=== PATIENT | female | born 2000 | race Caucasian/White ===

== ENCOUNTER 2024-07-17 17:10 | Emergency (ER) | payer MEDICAID ==
[~2024-07-17] VITALS: Ht 157.5 cm; Wt 61.3 kg
[2024-07-17] MEDS: SILVER SULFADIAZINE 1 % TOPICAL CREAM 50GM TOP ONE (18:54)
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
[2024-07-17] MEDS ORDERED: HYDR-4902 PO (19:52)
[2024-07-17 19:55] VITALS: BP 132/86; PULSE 112; RESP 18; TEMP 98.9; O2SAT 99
== END 2024-07-17 20:02 | disposition home or self-care (01) ==
LOC: ER 17:16
DX: T25.221A Burn of second degree of right foot, initial encounter (principal); T31.0 Burns involving less than 10% of body surface; X12.XXXA Contact with other hot fluids, initial encounter; Y93.G3 Activity, cooking and baking; Y92.89 Other specified places as the place of occurrence of the external cause; Y99.8 Other external cause status
CPT/HCPCS: 16020

== ENCOUNTER 2024-07-28 10:52 | Emergency (ER) | payer MEDICAID ==
[~2024-07-28] VITALS: Ht 157.5 cm; Wt 60.0 kg
[~2024-07-28 10:52] MED LIST: HYDR-4902 PO
[2024-07-28 11:03] VITALS: BP 130/80; PULSE 118; RESP 15; O2SAT 99
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
[2024-07-28] MEDS ORDERED: CEPH250C PO (12:03)
[2024-07-28] MEDS ORDERED: BAC09TP TOP (12:03)
[2024-07-28] MEDS: HYDROcodone-ACET 10/325MG TAB PO ONE (12:36)
== END 2024-07-28 12:37 | disposition home or self-care (01) ==
LOC: ER 10:52
DX: T25.221A Burn of second degree of right foot, initial encounter (principal); X08.8XXA Exposure to other specified smoke, fire and flames, initial encounter; Y93.89 Activity, other specified; Y92.89 Other specified places as the place of occurrence of the external cause; Y99.8 Other external cause status

== ENCOUNTER 2025-02-02 08:26 | Inpatient (IN) | payer MEDICAID ==
[~2025-02-02] VITALS: Ht 157.5 cm; Wt 67.0 kg
[~2025-02-02 08:26] MED LIST changes: +BAC09TP TOP; +CEPH250C PO
--- NOTE | 2025-02-02 09:04 | ED.PDOC ---
GI ASSESSMENT HPI Comments 24 y/o F, with PMHx of stomach ulcers presents to the ED for CC of abdominal pain. Patient states, she has been experiencing epigastric abdominal pain onset, last night (02/01/25). Patient relays, to have been drinking alcohol last night (02/01/25) which may be cause of symptoms however, is unsure. Patient reports, that she is currently unsure if she is ; endorses LMP to have been in Mid December 2024. Patient denies abdominal cramping, vaginal bleeding, nausea, or vomiting. No other symptoms or modifying factors present at this time. Chief Complaint: Abdominal Pain Time Seen by MD: 08:50 Primary Care Provider: NONE Reviewed Notes: Nurses Notes, Medications, Allergies Allergies: Coded Allergies: NO KNOWN ALLERGIES (Unverified , 07/17/24) Home Meds Active Scripts Bacitracin (Bacitracin Oint) 1 Applic Ap, 1 APPLIC TOP DAILY for 5 Days, #1 APPLIC Prov:CURT VELASQUEZ MD 07/28/24 Cephalexin (KEFLEX CAPSULE) 250 Mg Cp, 250 MG PO QID for 5 Days, #20 BOTTLE Prov:CURT VELASQUEZ MD 07/28/24 Hydrocodone-Acetaminophen (Hydrocodone Bitartrate/AC 5-325 mg) 1 Tab Tab, 1 TAB PO TID PRN, #24 TAB Prov:SUN LOPEZ 07/17/24 Information Source: Patient Mode of Arrival: Ambulatory Timing: Hours Duration: Since onset Prehospital treatment: None Quality: None Vomitus: None Stool: Normal Severity: Moderate Recent: None Recent Hx of: Ulcer Disease Pain Location: Epigastric Modifying Factors: Nothing Associated sign and symptoms: Abdominal Pain Past Medical History PAST MEDICAL HISTORY: Denies 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 Family History Family History: Reviewed,noncontributory to illness, Unknown Social History Smoker: Non-Smoker Alcohol: Occasionally Drugs: Denies Drug Use Lives In: Home Constitutional: denies: chills, diaphoresis, fatigue, fever, malaise, sweats, weakness, others EENTM: denies: blurred vision, double vision, ear bleeding, ear discharge, ear drainage, ear pain, ear ringing, eye pain, eye redness, hearing loss, mouth pain, mouth swelling, nasal discharge, nose bleeding, nose congestion, nose pain, photophobia, tearing, throat pain, throat swelling, voice changes, others Respiratory: denies: cough, hemoptysis, orthopnea, SOB at rest, shortness of breath, SOB with excertion, stridor, wheezing, others Cardiovascular: denies: chest pain, dizzy spells, diaphoresis, Dyspnea on exertion, edema, irregular heart beat, left arm pain, lightheadedness, palpitations, PND, syncope, others Gastrointestinal: reports: abdominal pain; denies: abdomen distended, blood streaked bowels, constipated, diarrhea, dysphagia, difficulty swallowing, hematemesis, melena, nausea, poor appetite, poor fluid intake, rectal bleeding, rectal pain, vomiting, others Genitourinary: denies: abnormal vagina bleeding, burning, dyspareunia, dysuria, flank pain, frequency, hematuria, incontinence, pain, , vagina discharge, urgency, others Neurological: denies: dizziness, fainting, headache, left sided numbness, left sided weakness, numbness, paresthesia, pre-existing deficit, right sided numbness, right sided weakness, seizure, speech problems, tingling, tremors, weakness, others Musculoskeletal: denies: back pain, gout, joint pain, joint swelling, muscle pain, muscle stiffness, neck pain, others Integumetry: denies: bruises, change in color, change in hair/nails, dryness, laceration, lesions, lumps, rash, wounds, others Allergic/Immunocompromised: denies: Difficulty Healing, Frequent Infections, Hives, Itching, others Hematologic/Lymphatic: denies: anemia, blood clots, easy bleeding, easy bruising, swollen glands, others Endocrine: denies: excessive hunger, excessive sweating, excessive thirst, excessive urination, flushing, intolerance to cold, intolerance to heat, unexplained weight gain, unexplained weight loss, others Psychiatric: denies: anxiety, bipolar disorder, depression, hopeless, panic disorder, schizophrenia, sleepless, suicidal, others All Other Systems: Reviewed and Negative Physical Exam General Appearance: No Apparent Distress, Other (terarful) HEENT: Normal ENT Inspection, Pharynx Normal, TMs Normal Neck: Full Range of Motion, Non-Tender, Normal, Normal Inspection Respiratory: Chest Non-Tender, Lungs Clear, No Accessory Muscle Use, No Respiratory Distress, Normal Breath Sounds Cardiovascular: No Edema, No JVD, No Murmur, No Gallop, Normal Peripheral Pulses, Regular Rate/Rhythm Breast Exam: Deferred Gastrointestinal: Epigastric, No Organomegaly, No Pulsatile Mass, Normal Bowel Sounds, RUQ, Tenderness Genitalia: Deferred Pelvic: Deferred Rectal: Deferred Extremities: No calf tenderness, Normal capillary refill, Normal inspection, Normal range of motion, Non-tender, No pedal edema Musculoskeletal : Apperance: Normal Neurologic: Alert, environmental health manager II-XII nml as Tested, No Motor Deficits, Normal Affect, Normal Mood, No Sensory Deficits Cerebellar Function: Normal Reflexes: Normal Skin: Dry, Normal Color, Warm Lymphatic: No Adenopathy Was a procedure done? Was a procedure done?: No GI differential Dx Differential Diagnosis: Appendicitis, Complete , Incomplete , Inevitable , Missed , Threatened , Abruptio placentae, Angina/AK, Aortic dissection, Bowel Obstruction, Cholangitis, Cholecystitis, Constipation, Diverticular disease, Dysmenorrhea, Ectopic , Esophageal rupture, Gastritis/PUD, Gastroenteritis, GI hemorrhage, Hernia, Hepatitis, Inflammatory BD, Ischemic Bowel, Pancreatitis, Urinary Obstruction, UTI, Urolithiasis, Dehydration, Diabetes/ DKA, Electrolyte Imbalance, Food Poisoning, , Bacterial, Viral, Stress Ulcer X-Ray, Labs, Meds, VS Vital Signs Date Time Temp Pulse Resp B/P (MAP) Pulse Ox O2 Delivery O2 Flow Rate FiO2 02/02/25 09:07 98.7 112 18 127/89 (102) 100 98.7 02/02/25 09:07 112 18 100 Room Air 02/02/25 08:43 98.7 102 20 138/92 (107) 100 98.7 Lab Test 02/02/25 10:54 02/02/25 08:56 Range/Units Urine Color Light-yellow Yellow Urine Clarity Clear Clear Urine pH 5.5 5.0-9.0 Urine Specific [place] 1.025 1.001-1.035 Urine Protein Trace H Negative Urine Ketones 3+ H Negative Urine Blood Negative Negative /uL Urine Nitrite Negative Negative Urine Bilirubin Negative Negative Urine Urobilinogen Normal Negative mg/dL Urine Leukocyte Esterase Negative Negative /uL Urine RBC 3 0 - 4 /hpf Urine Microscopic WBC 1 0-5 /HPF Urine Squamous Epithelial Cells Few <5 /hpf Urine Bacteria None seen None Seen /hpf Urine Mucus Few None Seen Urine Glucose Normal Normal mg/dL Urine Test Negative Negative White Blood Count 18.7 H 4.4-10.8 10^3/uL Red Blood Count 5.07 4.0-5.20 10^6/uL Hemoglobin 15.0 12.2-16.2 g/dL Hematocrit 45.1 36.0-46.0 % Mean Corpuscular Volume 88.9 80.0-100.0 fL Mean Corpuscular Hemoglobin 29.6 28.0-32.0 pg Mean Corpuscular Hemoglobin Concent 33.2 32.0-36.0 g/dL Red Cell Distribution Width 14.3 11.8-14.3 % Platelet Count 354 140-450 10^3/uL Mean Platelet Volume 8.0 6.9-10.8 fL Neutrophils (%) (Auto) 92.6 H 37.0-80.0 % Lymphocytes (%) (Auto) 5.8 L 10.0-50.0 % Monocytes (%) (Auto) 1.5 0.0-12.0 % Eosinophils (%) (Auto) 0.0 0.0-7.0 % Basophils (%) (Auto) 0.1 0.0-2.0 % Neutrophils # (Auto) 17.3 H 1.6-8.6 10 ^3/uL Lymphocytes # (Auto) 1.1 0.4-5.4 10 ^3/uL Monocytes # (Auto) 0.3 0-1.3 10 ^3/uL Eosinophils # (Auto) 0 0-0.8 10 ^3/uL Basophils # (Auto) 0 0-0.2 10 ^3/uL Nucleated Red Blood Cells 0.0 % Sodium Level 143 136-145 mmol/L Potassium Level 3.3 L 3.5-5.1 mmol/L Chloride Level 107 98-107 mmol/L Carbon Dioxide Level 15 L 20-31 mmol/L Anion Gap 21 H 5-15 Blood Urea Nitrogen 7 L 9-23 mg/dL Creatinine 0.96 0.550-1.02 mg/dL Glomerular Filtration Rate Calc 85 >90 mL/min BUN/Creatinine Ratio 7.3 L 10.0-20.0 Serum Glucose 134 H 74-106 mg/dL Calcium Level 11.3 H 8.7-10.4 mg/dL Total Bilirubin 0.5 0.2-1.0 mg/dL Aspartate Amino Transferase (AST) 32 <34 U/L Alanine Aminotransferase (ALT) 41 H 7-40 U/L Alkaline Phosphatase 99 46-116 U/L Total Protein 8.6 H 5.7-8.2 g/dL Albumin 5.8 H 3.2-4.8 g/dL Lipase 35 12-53 U/L Current Medications Medications (Trade) Dose Ordered Sig/Moreno Route Start Time Stop Time Status Last Admin Al Hydrox/Mg Hydrox/Simethicone (Maalox Plus) 15 ml ONCE ONCE PO 02/02/25 09:00 02/02/25 09:01 DC 02/02/25 09:10 [place] [id number] Ph: [phone] DIAGNOSTIC IMAGING Diagnostic Imaging Report : [id number] Signed PATIENT: PREMA AGUDELO ACCT: [id number] UNIT: [id number] : 2000 LOC: ER ROOM / BED: / AGE / SEX: 24 / F ADM STATUS: REG ER SERVICE [id number] ORDERING PHYSICIAN: JAMESON SADLER MD PROCEDURE(s): ABPL - CT AB PEL WO CON-NO ORAL OR IV REASON: epigastric pain after etoh use ORDER NUMBER(s): [id number], ACCESSION NUMBER(s): [id number] Exam: CT CT AB PEL WO CON-NO ORAL OR IV History: epigastric pain after etoh use Comparison Study: None Technique: Multidetector spiral CT of the abdomen was performed from lung bases to pubic symphysis. Imaging was performed without IV contrast. Axial, coronal and sagittal multiplanar reformats were obtained from the axial data set by the technologist. Radiation dose : 1. Abdomen/Pelvis: CTDIvol 7.09 mGy, DLP 352.39 mGy*cm. Findings: Evaluation of solid organs is limited due to lack of intravenous contrast use. Lung Bases: No acute or significant lung base finding. Normal heart size. No pleural or pericardial effusion. Liver: The liver is normal in size. No focal lesions. Gallbladder and biliary Tree: High density material in the gallbladder, likely sludge. No calcified gallstones. No definite gallbladder wall thickening or pericholecystic fluid Spleen: Unremarkable Pancreas: The pancreas is grossly normal in appearance. Adrenal Glands: 2.3 cm right adrenal nodule with hounsfield units less than 10, consistent with an adenoma. Kidneys: Kidneys are grossly normal without calculi or hydronephrosis. Bladder: Grossly unremarkable for degree of distention. Bowel: The stomach is grossly normal in appearance. Small bowel and colon are normal in caliber and distribution. Normal appendix is visualized in the right lower quadrant without findings of appendicitis. Ascites: Absent Lymphadenopathy: No mesenteric, retroperitoneal or periportal lymphadenopathy. Abdominal wall and Mesentery: Unremarkable. Vasculature: The visualized abdominal aorta is normal in size and caliber. Evaluation of abdominal and pelvic vessels is limited due to lack of intravenous contrast. Pelvic Organs: Unremarkable Musculoskeletal: No aggressive focal bony lesions, acute fractures or dislocation. IMPRESSION: 1. Possible gallbladder sludge without evidence of acute cholecystitis. 2. A 2.3 cm right adrenal adenoma. Radiation optimization: All CT scans at this facility use at least one of these dose optimization techniques: automated exposure control mA and/or kV adjustment per patient size (includes targeted exams where dose is matched to clinical indication) or iterative reconstruction. ATED BY: GOMEZ GALLEGOS MD DICTATED DATE/TIME: 02/02/25 123 SIGNED BY: GOMEZ GALLEGOS MD SIGNED DATE/TIME: 02/02/255 CC: Time of 1ST Reevaluation: 09:20 Reevaluation 1ST: Unchanged Time of 2ND Reevaluation: 12:58 Reevaluation 2ND: Improved Patient Education/Counseling: Diagnosis, Treatment, Prognosis, Need For Follow Up Family Education/Counseling: No Family Present Comments pt does have gb sludge, but no evidence of cholecystitis on US. her leukocytosis is and tachycardia are likely due to acute pain, rather than sepsis. however, for the pain, she will be admitted for further evaluation and treatment. it is very unlikely that she has acalculous cholecystitis, but i will cover her with antibiotic while she is admitted to be worked up she also has an adrenal incidentaloma, which is <4cm and needs to be monitored only for now Additional Information Previous visits reviewed: 07/28/24 DX: CARDENAS The following tests were ordered, and results were reviewed by me: I reviewed and agreed with the following test results read by other providers: None I discussed treatment and results with medical personnel and: patient Comprehensive systems review obtained and negative except for what is stated in the HPI. Departure 1 Departure Time of Disposition: 13:02 Impression: Primary Impression: Intractable abdominal pain Additional Impressions: Biliary colic Biliary sludge determined by ultrasound Adrenal incidentaloma Disposition: ADMITTED INPATIENT Admit to: Med Surg Condition: Stable Discharged With: Self Critical Care Note Critical Care Time?: Yes (55 min-critical care time only) Critical care comment: Due to concerns for patients condition deteriorating, the care required my highest level of attention and readiness to intervene. I assessed the patient, reviewed the medical records, ordered the appropriate tests and treatments, then reassessed for results and responsiveness. I communicated with medical personnel and consultants and formulated a plan of care. Total critical care time excludes any procedures Stability Stability form required: No Heart Score Heart Score: Heart Score Response (Comments) Value History N/A 0 EKG N/A 0 Age N/A 0 Risk Factors N/A 0 Troponin N/A 0 Total 0 I personally scribed for JAMESON SADLER MD ([email or web address]) on 02/02/25 at 09:04. Electronically submitted by Emliie Kan ([email or web address]). I personally scribed for JAMESON SADLER MD ([email or web address]) on 02/02/25 at 12:51. Elec tronically submitted by Emilie Kan ([email or web address]). JAMESON SADLER MD Feb 02, 2025 09:04
[2025-02-02] MEDS: MAALOX PLUS or MAALOX 30 ML PO ONE (09:10)
[2025-02-02 09:18] LABS: Basophils # (auto) 0 10 ^3/uL (0-0.2); Basophils % (auto) 0.1 % (0.0-2.0); Eosinophils # (auto) 0 10 ^3/uL (0-0.8); Hematocrit 45.1 % (36.0-46.0); Lymphocytes # (auto) 1.1 10 ^3/uL (0.4-5.4); Lymphocytes % (auto) 5.8 % (10.0-50.0); Mean Corpuscular Hemoglobin 29.6 pg (28.0-32.0); Mean Corpuscular Hgb Conc. 33.2 g/dL (32.0-36.0); Mean Corpuscular Volume 88.9 fL (80.0-100.0); Monocytes # (auto) 0.3 10 ^3/uL (0-1.3); Monocytes % (auto) 1.5 % (0.0-12.0); Neutrophils # (auto) 17.3 10 ^3/uL (1.6-8.6); Neutrophils % (auto) 92.6 % (37.0-80.0); Platelet Count (auto) 354 10^3/uL (140-450); Red Blood Cells 5.07 10^6/uL (4.0-5.20); Red Cell Distribution Width 14.3 % (11.8-14.3); White Blood Cell 18.7 10^3/uL (4.4-10.8)
[2025-02-02 09:33] LABS: Alkaline Phosphatase 99 U/L (46-116); Anion Gap 21 (5-15); Aspartate Aminotransferase 32 U/L (<34); BUN/Creatinine Ratio 7.3 (10.0-20.0); Bilirubin, Total 0.5 mg/dL (0.2-1.0); Chloride 107 mmol/L (98-107); Sodium 143 mmol/L (136-145)
[2025-02-02 09:35] LABS: Alanine Aminotransferase 41 U/L (7-40); Albumin 5.8 g/dL (3.2-4.8); Blood Urea Nitrogen 7 mg/dL (9-23); Calcium 11.3 mg/dL (8.7-10.4); Carbon Dioxide 15 mmol/L (20-31); Glucose 134 mg/dL (74-106); Potassium 3.3 mmol/L (3.5-5.1); Total Protein 8.6 g/dL (5.7-8.2)
[2025-02-02 09:52] LABS: Lipase 35 U/L (12-53)
[2025-02-02 10:56] LABS: Urine Bacteria None Seen /hpf (None Seen)
[2025-02-02 11:02] LABS: Urine Blood Negative /uL (Negative); Urine Clarity Clear (Clear); Urine Color Light-Yellow (Yellow); Urine Mucus FEW (None Seen); Urine Protein, UAD TRACE (Negative); Urine Specific Gravity 1.025 (1.001-1.035); Urine Squamous Epithelial Cell FEW /hpf (<5); Urine Urobilinogen Normal (Negative); Urine WBC 1 /HPF (0-5); Urine pH 5.5 (5.0-9.0)
--- NOTE | 2025-02-02 12:38 | DVH ---
Exam: CT CT AB PEL WO CON-NO ORAL OR IV History: epigastric pain after etoh use Comparison Study: None Technique: Multidetector spiral CT of the abdomen was performed from lung bases to pubic symphysis. I maging was performed without IV contrast. Axial, coronal and sagittal multiplanar reformats were obta ined from the axial data set by the technologist. Radiation dose : 1. Abdomen/Pelvis: CTDIvol 7.09 mGy, DLP 352.39 mGy*cm. Findings: Evaluation of solid organs is limited due to lack of intravenous contrast use. Lung Bases: No acute or significant lung base finding. Normal heart size. No pleural or pericardial effusion. Liver: The liver is normal in size. No focal lesions. Gallbladder and biliary Tree: High density material in the gallbladder, likely sludge. No calcified g allstones. No definite gallbladder wall thickening or pericholecystic fluid Spleen: Unremarkable Pancreas: The pancreas is grossly normal in appearance. Adrenal Glands: 2.3 cm right adrenal nodule with hounsfield units less than 10, consistent with an ad enoma. Kidneys: Kidneys are grossly normal without calculi or hydronephrosis. Bladder: Grossly unremarkable for degree of distention. Bowel: The stomach is grossly normal in appearance. Small bowel and colon are normal in caliber and d istribution. Normal appendix is visualized in the right lower quadrant without findings of appendicit is. Ascites: Absent Lymphadenopathy: No mesenteric, retroperitoneal or periportal lymphadenopathy. Abdominal wall and Mesentery: Unremarkable. Vasculature: The visualized abdominal aorta is normal in size and caliber. Evaluation of abdominal a nd pelvic vessels is limited due to lack of intravenous contrast. Pelvic Organs: Unremarkable Musculoskeletal: No aggressive focal bony lesions, acute fractures or dislocation. IMPRESSION: 1. Possible gallbladder sludge without evidence of acute cholecystitis. 2. A 2.3 cm right adrenal adenoma. Radiation optimization: All CT scans at this facility use at least one of these dose optimization josafat hniques: automated exposure control mA and/or kV adjustment per patient size (includes targeted exam s where dose is matched to clinical indication) or iterative reconstruction.
[2025-02-02] MEDS: PIPERACILLIN-TAZO 4.5GM 100 ML IV ONE (13:52)
[2025-02-02] MEDS: fentaNYL CITRATE 100 MCG/2 ML VL IV ONE (17:09)
[2025-02-02 19:13] VITALS: PULSE 68; RESP 18; O2SAT 96
[2025-02-02] MEDS ORDERED: ACETAMINOPHEN 325 MG TAB PO PRN (19:30)
[2025-02-02] MEDS: PANTOPRAZOLE 40 MG/10 ML VIAL INJ IV ONE (19:41)
[2025-02-02] MEDS: metroNIDAZOLE 500MG/100ML 100 ML IV SCH (19:41)
[2025-02-02] MEDS: SODIUM CHLORIDE 0.9% 1,000 ML IV ONE (19:42)
[2025-02-02] MEDS: POTASSIUM CHL 20 Meq TABLET PO ONE (19:42)
[2025-02-02 22:00] VITALS: PULSE 81; RESP 20; O2SAT 97
--- NOTE | 2025-02-02 22:05 | DVHHP2 ---
History of Present Illness Reason for Visit: Abdominal pain History of Present Illness 24-year-old female presents for evaluation of abdominal pain. Patient endorses a one day history of sharp epigastric nonradiating abdominal pain with associated nausea, vomiting and intermittent chills. Patient reports heavy drinking last night before the symptoms started. No other acute complaints reported. Past Medical History Denies Past Surgical History Family History Noncontributory Smoke: No ALCOHOL: none Drugs: None Lives: with Family Review of Systems Review of Systems Review of systems are currently negative otherwise addressed in HPI. Allergies: Coded Allergies: NO KNOWN ALLERGIES (Unverified , 07/17/24) Medications Current Medications Medications Dose Ordered Sig/Moreno Route Start Time Stop Time Status Last Admin Dose Admin Metronidazole 100 ml @ 100 mls/hr Q8HR IV 02/02/25 22:00 02/02/25 19:41 100 MLS/HR Pantoprazole Sodium 40 mg DAILY IV 02/03/25 10:00 Acetaminophen/ Hydrocodone Bitart 1 tab Q4HP PRN PO 02/02/25 19:30 Ondansetron HCl 4 mg Q4HP PRN IV 02/02/25 19:30 Acetaminophen 650 mg Q6HP PRN PO 02/02/25 19:30 Exam Vital Signs Vital Signs Date Time Temp Pulse Resp B/P (MAP) Pulse Ox O2 Delivery O2 Flow Rate FiO2 02/02/25 19:13 68 18 96 Room Air* 0 21 02/02/25 19:13 98.1 132/78 (96) 98.1 Exam Gen: 24-year-old female in no apparent distress. Skin: Warm, dry, normal color and texture, no rash. HEENT: Normocephalic atraumatic, mucous membranes moist and pink. Neck: Cervical and supraclavicular nodes normal without enlargement, trachea is midline, thyroid gland is normal without masses. Pulmonary: Clear to auscultation and percussion bilaterally. Cardiac: Regular rate and rhythm. No murmur Abdomen: Soft, nontender, nondistended, bowel sounds present all 4 quadrants, no guarding, no rigidity, no organomegaly. Extremities: No cyanosis, clubbing, no edema Neuro: Cranial nerves II through XII grossly intact, normal affect and speech, no focal motor deficits. Labs/Xrays ORDERING PHYSICIAN: JAMESON SADLER MD PROCEDURE(s): ABPL - CT AB PEL WO CON-NO ORAL OR IV REASON: epigastric pain after etoh use ORDER NUMBER(s): [id number], ACCESSION NUMBER(s): [id number] Exam: CT CT AB PEL WO CON-NO ORAL OR IV History: epigastric pain after etoh use Comparison Study: None Technique: Multidetector spiral CT of the abdomen was performed from lung bases to pubic symphysis. Imaging was performed without IV contrast. Axial, coronal and sagittal multiplanar reformats were obtained from the axial data set by the technologist. Radiation dose : 1. Abdomen/Pelvis: CTDIvol 7.09 mGy, DLP 352.39 mGy*cm. Findings: Evaluation of solid organs is limited due to lack of intravenous contrast use. Lung Bases: No acute or significant lung base finding. Normal heart size. No pleural or pericardial effusion. Liver: The liver is normal in size. No focal lesions. Gallbladder and biliary Tree: High density material in the gallbladder, likely sludge. No calcified gallstones. No definite gallbladder wall thickening or pericholecystic fluid Spleen: Unremarkable Pancreas: The pancreas is grossly normal in appearance. Adrenal Glands: 2.3 cm right adrenal nodule with hounsfield units less than 10, consistent with an adenoma. Kidneys: Kidneys are grossly normal without calculi or hydronephrosis. Bladder: Grossly unremarkable for degree of distention. Bowel: The stomach is grossly normal in appearance. Small bowel and colon are normal in caliber and distribution. Normal appendix is visualized in the right lower quadrant without findings of appendicitis. Ascites: Absent Lymphadenopathy: No mesenteric, retroperitoneal or periportal lymphadenopathy. Abdominal wall and Mesentery: Unremarkable. Vasculature: The visualized abdominal aorta is normal in size and caliber. Evaluation of abdominal and pelvic vessels is limited due to lack of intravenous contrast. Pelvic Organs: Unremarkable Musculoskeletal: No aggressive focal bony lesions, acute fractures or dislocation. IMPRESSION: 1. Possible gallbladder sludge without evidence of acute cholecystitis. 2. A 2.3 cm right adrenal adenoma. Radiation optimization: All CT scans at this facility use at least one of these dose optimization techniques: automated exposure control mA and/or kV adjustment per patient size (includes targeted exams where dose is matched to clinical indication) or iterative reconstruction. Labs Test 02/02/25 10:54 02/02/25 08:56 Range/Units Urine Color Light-yellow Yellow Urine Clarity Clear Clear Urine pH 5.5 5.0-9.0 Urine Specific [place] 1.025 1.001-1.035 Urine Protein Trace H Negative Urine Ketones 3+ H Negative Urine Blood Negative Negative /uL Urine Nitrite Negative Negative Urine Bilirubin Negative Negative Urine Urobilinogen Normal Negative mg/dL Urine Leukocyte Esterase Negative Negative /uL Urine RBC 3 0 - 4 /hpf Urine Microscopic WBC 1 0-5 /HPF Urine Squamous Epithelial Cells Few <5 /hpf Urine Bacteria None seen None Seen /hpf Urine Mucus Few None Seen Urine Glucose Normal Normal mg/dL Urine Test Negative Negative White Blood Count 18.7 H 4.4-10.8 10^3/uL Red Blood Count 5.07 4.0-5.20 10^6/uL Hemoglobin 15.0 12.2-16.2 g/dL Hematocrit 45.1 36.0-46.0 % Mean Corpuscular Volume 88.9 80.0-100.0 fL Mean Corpuscular Hemoglobin 29.6 28.0-32.0 pg Mean Corpuscular Hemoglobin Concent 33.2 32.0-36.0 g/dL Red Cell Distribution Width 14.3 11.8-14.3 % Platelet Count 354 140-450 10^3/uL Mean Platelet Volume 8.0 6.9-10.8 fL Neutrophils (%) (Auto) 92.6 H 37.0-80.0 % Lymphocytes (%) (Auto) 5.8 L 10.0-50.0 % Monocytes (%) (Auto) 1.5 0.0-12.0 % Eosinophils (%) (Auto) 0.0 0.0-7.0 % Basophils (%) (Auto) 0.1 0.0-2.0 % Neutrophils # (Auto) 17.3 H 1.6-8.6 10 ^3/uL Lymphocytes # (Auto) 1.1 0.4-5.4 10 ^3/uL Monocytes # (Auto) 0.3 0-1.3 10 ^3/uL Eosinophils # (Auto) 0 0-0.8 10 ^3/uL Basophils # (Auto) 0 0-0.2 10 ^3/uL Nucleated Red Blood Cells 0.0 % Sodium Level 143 136-145 mmol/L Potassium Level 3.3 L 3.5-5.1 mmol/L Chloride Level 107 98-107 mmol/L Carbon Dioxide Level 15 L 20-31 mmol/L Anion Gap 21 H 5-15 Blood Urea Nitrogen 7 L 9-23 mg/dL Creatinine 0.96 0.550-1.02 mg/dL Glomerular Filtration Rate Calc 85 >90 mL/min BUN/Creatinine Ratio 7.3 L 10.0-20.0 Serum Glucose 134 H 74-106 mg/dL Calcium Level 11.3 H 8.7-10.4 mg/dL Total Bilirubin 0.5 0.2-1.0 mg/dL Aspartate Amino Transferase (AST) 32 <34 U/L Alanine Aminotransferase (ALT) 41 H 7-40 U/L Alkaline Phosphatase 99 46-116 U/L Total Protein 8.6 H 5.7-8.2 g/dL Albumin 5.8 H 3.2-4.8 g/dL Lipase 35 12-53 U/L Assessment/Plan Assessment/Plan Assessment Acute abdominal pain Hypokalemia Leukocytosis Plan Admit the patient to [facility] to the hospitalist Replete electrolytes GI consultation Maintenance IV fluids Flagyl Continue treatment per orders. Plan discussed with: Patient My Orders Orders - SARAH ACEVEDO Procedure Category Date Status Time Metronidazole PHA 02/02/25 In Process 500mg/100ml (Flagyl 22:00 Sodium Chloride 0.9% PHA 02/02/25 In Process 19:30 Pantoprazole PHA 02/03/25 In Process (Protonix) 10:00 Basic Metabolic Panel LAB 02/03/25 Verified 04:00 Admit ADMIT 02/02/25 Transmitted 19:16 Hydrocodone-Acet PHA 02/02/25 In Process 5/325mg Tab ([place] 19:30 Ondansetron Hcl PHA 02/02/25 In Process (Zofran) 19:30 Complete Blood Count LAB 02/03/25 Verified 04:00 Condition: Stable MIKEY 02/02/25 In Process 19:16 Acetaminophen Tablet PHA 02/02/25 In Process (Tylenol Tablet) 19:30 Clear Liq Diet DIET 02/03/25 Transmitted Breakfast Bedrest With Bathroom MIKEY 02/02/25 In Process Privileg 19:16 Date of Service: Feb 02, 2025 Billing Provider: SARAH ACEVEDO Common Visit Codes: [id number] INP/OBS CARE (MOD) SARAH ACEVEDO Feb 02, 2025 22:05
[2025-02-03] VITALS (8 sets, daily range): BP systolic 114–131; BP diastolic 70–88; PULSE 65–88; RESP 17–20; TEMP 97–98.3; O2SAT 97–99
[2025-02-03 08:12] LABS: Basophils # (auto) 0 10 ^3/uL (0-0.2); Basophils % (auto) 0.4 % (0.0-2.0); Eosinophils # (auto) 0 10 ^3/uL (0-0.8); Eosinophils % (auto) 0.1 % (0.0-7.0); Hematocrit 37.2 % (36.0-46.0); Hemoglobin 12.6 g/dL (12.2-16.2); Lymphocytes # (auto) 2.1 10 ^3/uL (0.4-5.4); Lymphocytes % (auto) 18.5 % (10.0-50.0); Mean Corpuscular Hemoglobin 30.1 pg (28.0-32.0); Mean Corpuscular Hgb Conc. 33.8 g/dL (32.0-36.0); Mean Corpuscular Volume 89.2 fL (80.0-100.0); Monocytes # (auto) 0.7 10 ^3/uL (0-1.3); Neutrophils # (auto) 8.5 10 ^3/uL (1.6-8.6); Platelet Count (auto) 267 10^3/uL (140-450); Red Blood Cells 4.18 10^6/uL (4.0-5.20); Red Cell Distribution Width 14.3 % (11.8-14.3); White Blood Cell 11.4 10^3/uL (4.4-10.8)
[2025-02-03 08:16] LABS: Sodium 143 mmol/L (136-145)
[2025-02-03 08:17] LABS: Anion Gap 12 (5-15); Calcium 9.8 mg/dL (8.7-10.4); Carbon Dioxide 22 mmol/L (20-31)
[2025-02-03 08:20] LABS: Chloride 109 mmol/L (98-107); Potassium 3.4 mmol/L (3.5-5.1)
[2025-02-03 08:22] LABS: BUN/Creatinine Ratio 14.5 (10.0-20.0); Blood Urea Nitrogen 11 mg/dL (9-23); Glucose 89 mg/dL (74-106)
[2025-02-03] MEDS: cefTRIAXone 1GM/50ML D5W 50 ML IV SCH (09:37)
[2025-02-03] MEDS: POTASSIUM CHL 20 Meq TABLET PO ONE (09:38)
[2025-02-03] MEDS: PANTOPRAZOLE 40 MG/10 ML VIAL INJ IV SCH (09:38)
[2025-02-03] MEDS: HYDROcodone-ACET 5/325MG TAB PO PRN (09:39)
[2025-02-03] MEDS: SUCRALFATE 1 GM/10 ML ORAL SUSP PO ONE (12:17)
[2025-02-03 12:19] LABS: INR 1.03 (0.9-1.15); Partial Thromboplastin Time 31.6 SEC (24.5-34.5); Prothrombin Time 10.9 sec (9.3-11.8)
--- NOTE | 2025-02-03 13:50 | DVHINCON2 ---
GI Consult Consult Note GI consult note Date of Consultation: 02/03/2025 Chief Complaint: GI bleed Referring Physician: Dr. Sheikh H&P: 24-year-old female admitted with epigastric abdominal pain for one day. Patient has nausea and vomiting, and also has noticed red clots in her emesis. No melena or red blood in stool. Patient complains of similar episode in November, and two weeks ago, mostly after consuming alcohol Denies aspirin or NSAID use Past Medical History: Denies Past Surgical History: Social History: NO smoking, drinking ETOH and use of illegal drugs. Family History: Noncontributory Review of Systems: Constitutional: no fever, chill, weight loss HEENT: no eye pain, no hearing loss, no oral lesion, no scleral icterus Heart: no chest pain, no chest pressure Lung: no cough, no dyspnea with exertion Abdomen: see HPI Physical exam: General: NAD, AAOX3 Chest: lung davis clear to auscultation Heart: RRR, no murmur Abdomen:+ epigastric tenderness to palpation, +BS Labs: Labs Test 02/03/25 11:13 02/03/25 06:32 02/02/25 10:54 02/02/25 08:56 Range/Units Prothrombin Time 10.9 9.3-11.8 sec Prothrombin Time INR 1.03 0.9-1.15 Activated Partial Thromboplast Time 31.6 24.5-34.5 SEC White Blood Count 11.4 #H 4.4-10.8 10^3/uL Red Blood Count 4.18 4.0-5.20 10^6/uL Hemoglobin 12.6 # 12.2-16.2 g/dL Hematocrit 37.2 # 36.0-46.0 % Mean Corpuscular Volume 89.2 80.0-100.0 fL Mean Corpuscular Hemoglobin 30.1 28.0-32.0 pg Mean Corpuscular Hemoglobin Concent 33.8 32.0-36.0 g/dL Red Cell Distribution Width 14.3 11.8-14.3 % Platelet Count 267 140-450 10^3/uL Mean Platelet Volume 8.3 6.9-10.8 fL Neutrophils (%) (Auto) 75.0 37.0-80.0 % Lymphocytes (%) (Auto) 18.5 10.0-50.0 % Monocytes (%) (Auto) 6.0 0.0-12.0 % Eosinophils (%) (Auto) 0.1 0.0-7.0 % Basophils (%) (Auto) 0.4 0.0-2.0 % Neutrophils # (Auto) 8.5 1.6-8.6 10 ^3/uL Lymphocytes # (Auto) 2.1 0.4-5.4 10 ^3/uL Monocytes # (Auto) 0.7 0-1.3 10 ^3/uL Eosinophils # (Auto) 0 0-0.8 10 ^3/uL Basophils # (Auto) 0 0-0.2 10 ^3/uL Nucleated Red Blood Cells 0.0 % Sodium Level 143 136-145 mmol/L Potassium Level 3.4 L 3.5-5.1 mmol/L Chloride Level 109 H 98-107 mmol/L Carbon Dioxide Level 22 20-31 mmol/L Anion Gap 12 5-15 Blood Urea Nitrogen 11 9-23 mg/dL Creatinine 0.76 0.550-1.02 mg/dL Glomerular Filtration Rate Calc 113 >90 mL/min BUN/Creatinine Ratio 14.5 10.0-20.0 Serum Glucose 89 74-106 mg/dL Hemoglobin A1c 5.4 <5.7 % A1C Calcium Level 9.8 8.7-10.4 mg/dL Magnesium Level 2.2 1.6-2.6 mg/dL Vitamin B12 Level 232 211-911 pg/mL Vitamin D 25-Hydroxy 61.1 30.0-100 ng/mL Thyroid Stimulating Hormone (TSH) 0.81 0.55-4.78 uIU/mL Urine Color Light-yellow Yellow Urine Clarity Clear Clear Urine pH 5.5 5.0-9.0 Urine Specific [place] 1.025 1.001-1.035 Urine Protein Trace H Negative Urine Ketones 3+ H Negative Urine Blood Negative Negative /uL Urine Nitrite Negative Negative Urine Bilirubin Negative Negative Urine Urobilinogen Normal Negative mg/dL Urine Leukocyte Esterase Negative Negative /uL Urine RBC 3 0 - 4 /hpf Urine Microscopic WBC 1 0-5 /HPF Urine Squamous Epithelial Cells Few <5 /hpf Urine Bacteria None seen None Seen /hpf Urine Mucus Few None Seen Urine Glucose Normal Normal mg/dL Urine Test Negative Negative Total Bilirubin 0.5 0.2-1.0 mg/dL Aspartate Amino Transferase (AST) 32 <34 U/L Alanine Aminotransferase (ALT) 41 H 7-40 U/L Alkaline Phosphatase 99 46-116 U/L Total Protein 8.6 H 5.7-8.2 g/dL Albumin 5.8 H 3.2-4.8 g/dL Lipase 35 12-53 U/L Imaging: CT abdomen pelvis IMPRESSION: 1. Possible gallbladder sludge without evidence of acute cholecystitis. 2. A 2.3 cm right adrenal adenoma. Assessment: Abdominal pain GI bleed Plan: Discussed with Dr. Orozco - Pt will be scheduled for an EGD tomorrow 02/04/2025. Pt was informed of the risks (bleeding, infection, perforation, reaction to sedation medications and cardiopulmonary arrest) and benefit and is agreeable to undergo the procedures. DC alcohol use discussed extensively Protonix and Zofran Discussed plan with patient, at bedside and RN Thank you for this consult Date of Service: Feb 03, 2025 Billing Provider: PAOLA ROMERO Common Visit Codes: CONSULT ONLY Consultation Codes: [id number] CONSULT <60MIN PAOLA ROMERO Feb 03, 2025 13:50
--- NOTE | 2025-02-03 16:17 | DVHPNRES ---
Progress Note Date Seen: Feb 03, 2025 Resident Creating Document: CONCHIS CARD RESIDENT Medical Necessity Reason Pt with a Central, PICC or Fol: No Subjective Review of Systems This is a 24-year-old female with a history of peptic ulcer disease who presents to the ER after episode of binge drinking for the evaluation of abdominal pain, left-sided, started at 2:00 a.m. on 02/02 associated with nausea, vomiting and hematemesis. Patient reported throwing up 10-20 cc of dark blood along with clots, denies constipation or diarrhea. Denies aspirin or NSAID use. Patient had recent binge drinking episode this prior to the episode in which she drank Tequila and other drinks. Patient had an episode of hematemesis in November. Past medical history: Peptic ulcer disease Past surgical history: None Home medications: None PCP: Dr. Thomas Patient seen and examined at the bedside. GI consulted. NPO. Objective vital signs Vital Sign Date Time Temp Pulse Resp B/P (MAP) Pulse Ox O2 Delivery O2 Flow Rate FiO2 02/03/25 13:00 97.6 78 18 131/86 (101) 98 97.6 02/03/25 08:00 Room Air* 0 21 Total Intake and Output 02/02/25 02/02/25 02/03/25 15:00 23:00 07:00 Intake Total 300 ml Balance 300 ml medications Current Medications Medications Dose Ordered Sig/More[place] Route Start Time Stop Time Status Last Admin Dose Admin Metronidazole 100 ml @ 100 mls/hr Q8HR IV 02/02/25 22:00 02/03/25 14:53 100 MLS/HR Pantoprazole Sodium 40 mg DAILY IV 02/03/25 10:00 02/03/25 09:38 40 MG Acetaminophen/ Hydrocodone Bitart 1 tab Q4HP PRN PO 02/02/25 19:30 02/03/25 09:39 1 TAB Ondansetron HCl 4 mg Q4HP PRN IV 02/02/25 19:30 Acetaminophen 650 mg Q6HP PRN PO 02/02/25 19:30 Ceftriaxone Sodium 50 ml @ 100 mls/hr DAILY@09 IV 02/03/25 09:00 02/03/25 09:37 100 MLS/HR Sucralfate 1 gm BID@0600,2200 PO 02/03/25 22:00 Examination Patient lying in bed, in no acute distress General: Well-built, afebrile, palor, mucosae are moist Cardiovascular: Regular S1 and S2. No murmurs, gallops or rubs. No JVD elevation. No pedal edema Respiratory: Normal B/L air entry on room air. Clear lung sounds on auscultation Abdomen: Soft, tenderness in epigastrium, nondistended, normoactive bowel sounds, no rebound tenderness, no organomegaly, no masses Genitourinary: Deferred MSK/skin: Mobilizes 4 limbs. Skin is dry and warm Neurological: No motor, no sensitive deficits, normal speech. Pupils are isocoric and reactive. Psych/Mental Status: A/Ox3 laboratory and microbiology Laboratory Tests 02/03/25 06:32 Test 02/03/25 06:32 Range/Units Serum Glucose 89 74-106 mg/dL Labs and/or images reviewed: Labs reviewed by me, Image(s) reviewed by me Problem List/Assessment/Plan Problem List/Assessment/Plan ? Abdominal pain secondary to Peptic ulcer disease Upper GI bleed Acute gastroenteritis, likely infectious etiology IV fluids, NPO, GI consultation-EGD tomorrow IV antibiotics ceftriaxone and metronidazole IV Protonix b.i.d. and Carafate b.i.d. Zofran p.r.n. Alcohol intoxication Risk of alcohol withdrawal CIWA less than 8 Supplemented thiamine, folic acid, multivitamin Ativan p.r.n. Hypokalemia Supplemented Vitamin B12 deficiency Supplemented Plan discussed with patient in which all questions have been answered Goals of care discussed for more than 20 minutes, full code status Case discussed with Dr. Dietz Plan discussed with: Patient My Orders My Orders Orders - CONCHIS CARD RESIDENT Procedure Category Date Status Time Drug Screen LAB 02/03/25 Logged 08:40 Covid19 Antigen [facility] 02/03/25 Logged Rapid Influenza A&B LAB 02/03/25 Logged 08:40 Ceftriaxone 1gm/50ml PHA 02/03/25 In Process D5w (Rocephin) 09:00 Sucralfate Susp PHA 02/03/25 In Process (Carafate Susp) 22:00 * Gi Dvh Paint Stripper CONS 02/03/25 Transmitted 10:19 Date of Service: Feb 03, 2025 Billing Provider: WASHINGTON THOMSON MD Common Visit Codes: [id number] INP/OBS CARE(HIGH) CONCHIS CARD RESIDENT Feb 03, 2025 16:17 WASHINGTON THOMSON MD Feb 10, 2025 10:14
[2025-02-03] MEDS ORDERED: LORazepam 2MG/ML-1ML VIAL IV PRN (16:30)
[2025-02-03] MEDS: MULTIPLE VITAMIN TAB PO ONE (16:53)
[2025-02-03] MEDS: FOLIC ACID 1 MG TAB PO ONE (16:53)
[2025-02-03] MEDS: CYANOCOBALAMIN (B-12) 1000 MCG/1 ML VIAL IM ONE (16:56)
[2025-02-03] MEDS: THIAMINE 100mg/ml INJ (200mg/2ml VIAL) IM ONE (16:57)
[2025-02-03] MEDS ORDERED: PANTOPRAZOLE 40 MG/10 ML VIAL INJ IV ONE (22:00)
[2025-02-03] MEDS: SUCRALFATE 1 GM/10 ML ORAL SUSP PO SCH (22:12)
[2025-02-04] VITALS (7 sets, daily range): BP systolic 111–133; BP diastolic 74–97; PULSE 65–110; RESP 13–19; TEMP 96.8–98; O2SAT 98–100
[2025-02-04] MEDS: ONDANSETRON HCL 4 MG/2 ML VIAL IV PRN (04:37)
[2025-02-04 07:14] LABS: Basophils # (auto) 0 10 ^3/uL (0-0.2); Basophils % (auto) 0.5 % (0.0-2.0); Eosinophils # (auto) 0 10 ^3/uL (0-0.8); Eosinophils % (auto) 0.4 % (0.0-7.0); Hematocrit 41.8 % (36.0-46.0); Hemoglobin 14.1 g/dL (12.2-16.2); Lymphocytes # (auto) 2.5 10 ^3/uL (0.4-5.4); Mean Corpuscular Hemoglobin 30.2 pg (28.0-32.0); Mean Corpuscular Hgb Conc. 33.7 g/dL (32.0-36.0); Mean Corpuscular Volume 89.4 fL (80.0-100.0); Monocytes # (auto) 0.4 10 ^3/uL (0-1.3); Monocytes % (auto) 5.6 % (0.0-12.0); Neutrophils % (auto) 62.5 % (37.0-80.0); Platelet Count (auto) 267 10^3/uL (140-450); Red Blood Cells 4.67 10^6/uL (4.0-5.20); Red Cell Distribution Width 14.1 % (11.8-14.3)
[2025-02-04 07:32] LABS: Calcium 9.8 mg/dL (8.7-10.4); Chloride 104 mmol/L (98-107); Sodium 141 mmol/L (136-145)
[2025-02-04 07:33] LABS: Anion Gap 15 (5-15); Carbon Dioxide 22 mmol/L (20-31)
[2025-02-04 07:34] LABS: Potassium 3.3 mmol/L (3.5-5.1)
[2025-02-04 07:38] LABS: BUN/Creatinine Ratio 9.3 (10.0-20.0)
[2025-02-04 07:41] LABS: Blood Urea Nitrogen 7 mg/dL (9-23); Glucose 72 mg/dL (74-106)
[2025-02-04] MEDS: MULTIPLE VITAMIN TAB PO SCH (09:51)
[2025-02-04] MEDS: FOLIC ACID 1 MG TAB PO SCH (09:51)
[2025-02-04] MEDS: THIAMINE HCL 100 MG TAB PO SCH (09:51)
[2025-02-04] MEDS: POTASSIUM CHL 20MEQ/100ML 100 ML IV ONE (11:00)
[2025-02-04] MEDS ORDERED: SODIUM CHLORIDE LOCK 10 ML ONE (12:27)
[2025-02-04] MEDS: LIDOCAINE VISCOUS 2% 15ML UD ONE (15:29)
[2025-02-04] MEDS: MIDAZOLAM HCL 5 MG/ML-1ML VIAL ONE (15:30)
[2025-02-04] MEDS: diphenhdrAMINE HCL 50 MG/1 ML VL ONE (15:30)
[2025-02-04] MEDS: fentaNYL CITRATE 100 MCG/2 ML VL ONE (15:30)
--- NOTE | 2025-02-04 15:41 | DVHOP2 ---
Operative Report DATE OF OPERATION: 02/04/25 PROCEDURE: Upper Endoscopy with biopsy. PREOPERATIVE INDICATION: The patient is a 24 -year-old female undergoing endoscopy for nausea vomiting upper GI bleed POSTOPERATIVE DIAGNOSES: 1. [id number] gastropathy involving the proximal stomach with some hyperemia erythema and superficial erosions 2. Mild antral gastritis otherwise normal examination up to the 2nd and 3rd part of the duodenum with no fresh or old blood in the upper GI tract PROCEDURE PERFORMED BY: Jani Orozco GI NURSE: Victoriano SCOPE: Olympus videoendoscope. ASA CLASS: 2 PREOPERATIVE MEDICATIONS: Versed 4 mg, Fentanyl 100 mcg, Benadryl 50 mg I administered moderate sedation throughout this _7_ minutes procedure. An independent trained observer pushed medications at my direction, and monitored the patient's level of consciousness and physiological status throughout. PROCEDURE IN DETAIL: After obtaining an informed consent, the patient was placed on left lateral decubitus position. The patient was then sedated with the above medications. A bite block was placed between her teeth. The endoscope was then passed through the oropharynx, into the esophagus, and through the stomach and pylorus up to the second and third part of the duodenum. The endoscope was then withdrawn. Part of the duodenum and the duodenal bulb were normal as was the ampulla. Duodenal biopsies were obtained. The pre-pyloric area antrum and distal body showed minimal gastritis. Gastric biopsies were obtained On retroflexion and straight on view the patient had mild to moderate gastropathy involving the proximal stomach with some hyperemia erythema and superficial erosions The endoscope was then withdrawn into the distal esophagus where she had a slightly irregular squamocolumnar junction with no significant erosive esophagitis or hiatal hernia The remaining distal and proximal esophagus and oropharynx were unremarkable The patient tolerated the procedure well without difficulty. COMPLICATIONS : None SPECIMENS: Duodenal biopsies Gastric biopsies DISPOSITION: Transfer back to the floor Stable PLAN: 1. Await for biopsy result 2. Protonix 40 mg p.o. daily 3. Carafate 1 g p.o. twice a day 4. DC aspirin NSAIDs smoking alcohol 5. Soft mechanical diet advance as tolerated; patient is stable for discharge from GI point of view 6. Outpatient follow up with me in 4-6 weeks to review results and discuss further management JANI OROZCO MD Feb 04, 2025 15:41
[2025-02-04] MEDS ORDERED: SUCR1TAB31 OR (15:59)
[2025-02-04] MEDS ORDERED: PANT40T PO (15:59)
[2025-02-04] MEDS ORDERED: THIA100T10 PO (16:04)
[2025-02-04] MEDS ORDERED: MULTTAB99 PO (16:04)
[2025-02-04] MEDS ORDERED: FOLI-119 PO (16:04)
--- NOTE | 2025-02-04 16:06 | DVHDSRES ---
Discharge Summary Date of Admission Resident Creating Document: CONCHIS CARD RESIDENT Feb 02, 2025 at 19:16 Date of Discharge: Feb 04, 2025 Labs/Diagnostic Data: Laboratory Results Test 02/04/25 04:26 02/03/25 11:13 02/03/25 06:32 02/02/25 10:54 White Blood Count 8.0 10^3/uL (4.4-10.8) Red Blood Count 4.67 10^6/uL (4.0-5.20) Hemoglobin 14.1 g/dL (12.2-16.2) Hematocrit 41.8 % (36.0-46.0) Mean Corpuscular Volume 89.4 fL (80.0-100.0) Mean Corpuscular Hemoglobin 30.2 pg (28.0-32.0) Mean Corpuscular Hemoglobin Concent 33.7 g/dL (32.0-36.0) Red Cell Distribution Width 14.1 % (11.8-14.3) Platelet Count 267 10^3/uL (140-450) Mean Platelet Volume 8.3 fL (6.9-10.8) Neutrophils (%) (Auto) 62.5 % (37.0-80.0) Lymphocytes (%) (Auto) 31.0 % (10.0-50.0) Monocytes (%) (Auto) 5.6 % (0.0-12.0) Eosinophils (%) (Auto) 0.4 % (0.0-7.0) Basophils (%) (Auto) 0.5 % (0.0-2.0) Neutrophils # (Auto) 5.0 10 ^3/uL (1.6-8.6) Lymphocytes # (Auto) 2.5 10 ^3/uL (0.4-5.4) Monocytes # (Auto) 0.4 10 ^3/uL (0-1.3) Eosinophils # (Auto) 0 10 ^3/uL (0-0.8) Basophils # (Auto) 0 10 ^3/uL (0-0.2) Nucleated Red Blood Cells 0.0 % Sodium Level 141 mmol/L (136-145) Potassium Level 3.3 mmol/L (3.5-5.1) Chloride Level 104 mmol/L (98-107) Carbon Dioxide Level 22 mmol/L (20-31) Anion Gap 15 (5-15) Blood Urea Nitrogen 7 mg/dL (9-23) Creatinine 0.75 mg/dL (0.550-1.02) Glomerular Filtration Rate Calc 115 mL/min (>90) BUN/Creatinine Ratio 9.3 (10.0-20.0) Serum Glucose 72 mg/dL (74-106) Calcium Level 9.8 mg/dL (8.7-10.4) Prothrombin Time 10.9 sec (9.3-11.8) Prothrombin Time INR 1.03 (0.9-1.15) Activated Partial Thromboplast Time 31.6 SEC (24.5-34.5) Hemoglobin A1c 5.4 % A1C (<5.7) Magnesium Level 2.2 mg/dL (1.6-2.6) Vitamin B12 Level 232 pg/mL (211-911) Vitamin D 25-Hydroxy 61.1 ng/mL (30.0-100) Thyroid Stimulating Hormone (TSH) 0.81 uIU/mL (0.55-4.78) Urine Color Light-yellow (Yellow) Urine Clarity Clear (Clear) Urine pH 5.5 (5.0-9.0) Urine Specific [place] 1.025 (1.001-1.035) Urine Protein Trace (Negative) Urine Ketones 3+ (Negative) Urine Blood Negative /uL (Negative) Urine Nitrite Negative (Negative) Urine Bilirubin Negative (Negative) Urine Urobilinogen Normal mg/dL (Negative) Urine Leukocyte Esterase Negative /uL (Negative) Urine RBC 3 /hpf (0 - 4) Urine Microscopic WBC 1 /HPF (0-5) Urine Squamous Epithelial Cells Few /hpf (<5) Urine Bacteria None seen /hpf (None Seen) Urine Mucus Few (None Seen) Urine Glucose Normal mg/dL (Normal) Urine Test Negative (Negative) Test 02/02/25 08:56 Total Bilirubin 0.5 mg/dL (0.2-1.0) Aspartate Amino Transferase (AST) 32 U/L (<34) Alanine Aminotransferase (ALT) 41 U/L (7-40) Alkaline Phosphatase 99 U/L (46-116) Total Protein 8.6 g/dL (5.7-8.2) Albumin 5.8 g/dL (3.2-4.8) Lipase 35 U/L (12-53) Other Laboratory Tests 02/04/25 04:26 Brief Hx & Hospital Course: This is a 24-year-old female with a history of peptic ulcer disease who presents to the ER after episode of binge drinking for the evaluation of abdominal pain, left-sided, started at 2:00 a.m. on 02/02 associated with nausea, vomiting and hematemesis. Patient reported throwing up 10-20 cc of dark blood along with clots, denies constipation or diarrhea. Denies aspirin or NSAID use. Patient had recent binge drinking episode this prior to the episode in which she drank Tequila and other drinks. Patient had an episode of hematemesis in November. Past medical history: Peptic ulcer disease Past surgical history: None Home medications: None PCP: Dr. Thomas During the hospitalization, patient was kept NPO, Protonix and Carafate was started. IV antibiotic ceftriaxone and metronidazole were started. Patient was given Zofran IV. CT abdomen was completed which showed possible gallbladder sludge without evidence of acute cholecystitis. 2.3 cm right adrenal adenoma. GI was consulted-recommended endoscopy which the patient underwent 02/04-showed [id number] gastropathy involving the proximal stomach with some hyperemia erythema and superficial erosions. Mild antral gastritis otherwise normal examination up to the 2nd and 3rd part of the duodenum with no fresh or old blood in the upper GI tract Given the episode of binge drinking with supplemented thiamine, folic acid, multivitamin. Ativan was kept p.r.n.. Patient electrolytes were supplemented. B12 was supplemented. Discharge plan: Continue Protonix 40 mg daily Continue Carafate 1 g p.o. twice daily Continue multivitamin tablet daily Follow up with [facility] as outpatient within 4-6 weeks to follow up with biopsy results and further management Follow up with PCP as outpatient and follow up on right adrenal adenoma Patient agreed to discharge planning Consults/Reason for consult GI consulted for hematemesis Operations or Procedures Operative Report DATE OF OPERATION: 02/04/25 PROCEDURE: Upper Endoscopy with biopsy. PREOPERATIVE INDICATION: The patient is a 24 -year-old female undergoing endoscopy for nausea vomiting upper GI bleed POSTOPERATIVE DIAGNOSES: 1. Gnxc-[id number] gastropathy involving the proximal stomach with some hyperemia erythema and superficial erosions 2. Mild antral gastritis otherwise normal examination up to the 2nd and 3rd part of the duodenum with no fresh or old blood in the upper GI tract PROCEDURE PERFORMED BY: Jani VIEIRA NURSE: Victoriano SCOPE: Olympus videoendoscope. ASA CLASS: 2 PREOPERATIVE MEDICATIONS: Versed 4 mg, Fentanyl 100 mcg, Benadryl 50 mg I administered moderate sedation throughout this _7_ minutes procedure. An independent trained observer pushed medications at my direction, and monitored the patient's level of consciousness and physiological status throughout. PROCEDURE IN DETAIL: After obtaining an informed consent, the patient was placed on left lateral decubitus position. The patient was then sedated with the above medications. A bite block was placed between her teeth. The endoscope was then passed through the oropharynx, into the esophagus, and through the stomach and pylorus up to the second and third part of the duodenum. The endoscope was then withdrawn. Part of the duodenum and the duodenal bulb were normal as was the ampulla. Duodenal biopsies were obtained. The pre-pyloric area antrum and distal body showed minimal gastritis. Gastric biopsies were obtained On retroflexion and straight on view the patient had mild to moderate gastropathy involving the proximal stomach with some hyperemia erythema and superficial erosions The endoscope was then withdrawn into the distal esophagus where she had a slightly irregular squamocolumnar junction with no significant erosive esophagitis or hiatal hernia The remaining distal and proximal esophagus and oropharynx were unremarkable The patient tolerated the procedure well without difficulty. COMPLICATIONS : None SPECIMENS: Duodenal biopsies Gastric biopsies DISPOSITION: Transfer back to the floor Stable PLAN: 1. Await for biopsy result 2. Protonix 40 mg p.o. daily 3. Carafate 1 g p.o. twice a day 4. DC aspirin NSAIDs smoking alcohol 5. Soft mechanical diet advance as tolerated; patient is stable for discharge from GI point of view 6. Outpatient follow up with me in 4-6 weeks to review results and discuss further management JANI CHI MD Feb 04, 2025 15:41 DICTATED BY:JANI CHI MD DICTATED DATE/TIME:02/04/25 154 ELECTRONICALLY SIGNED BY:JANI CHI MD 02/04/25 154 ELECTRONICALLY CO-SIGNED BY: Condition at Discharge: Stable Final Diagnosis/Problems List Abdominal pain secondary to Peptic ulcer disease Upper GI bleed Secondary to gastropathy Acute gastroenteritis, likely infectious etiology Right adrenal adenoma Alcohol intoxication Risk of alcohol withdrawal-CIWA less than 8 Hypokalemia Vitamin B12 deficiency Discharge Disposition: Home Discharge Instruct/Medications Diet: See Comment Diet comment: Soft mechanical diet, advanced as tolerated Activity: No Restrictions, As Tolerated Follow Up/Referral: Follow up with [facility] as outpatient in 4-6 weeks to review results of biopsy and discuss further management Follow up with primary care physician within 7 days Follow up with [place] clinic within 7 days Medications: Pantoprazole 40 mg once daily Carafate 1 g 2 times daily Discharge Statement: "Patient was advised to return to the ER or call 911 if any headaches, dizziness, shortness of breath, chest pain, abdominal pain, bleeding, fevers, or worsening of medical condition. Patient was counseled about treatment plan, medications, possible side effects, patientverbalized understanding. All questions were answered to the best of my ability. This discharge took greater then 30 minutes in planning, reviewing documentation, counseling the patient, and discussing with other team members." ASSESSMENT ASSESSMENT Assessment Abdominal pain secondary to Peptic ulcer disease Upper GI bleed Secondary to gastropathy CONCHIS CARD RESIDENT Feb 04, 2025 16:06
== END 2025-02-04 17:54 | disposition home or self-care (01) | DRG 241 ==
LOC: ER 08:26 → OVERFLOW 19:16 → WEST WING 22:25
PROVIDERS: ADMIT Student in an Organized Health Care Education/Training Program; ATTEND Internal Medicine
PROC: 0DB94ZX Excision of Duodenum, Percutaneous Endoscopic Approach, Diagnostic (ICD-10-PCS; 2025-02-04)
PROC: 0DB68ZX Excision of Stomach, Via Natural or Artificial Opening Endoscopic, Diagnostic (ICD-10-PCS; principal; 2025-02-04 15:26)
DX: K27.9 Peptic ulcer, site unspecified, unspecified as acute or chronic, without hemorrhage or perforation (principal); R65.10 Systemic inflammatory response syndrome (SIRS) of non-infectious origin without acute organ dysfunction; F10.129 Alcohol abuse with intoxication, unspecified; K31.9 Disease of stomach and duodenum, unspecified; A09 Infectious gastroenteritis and colitis, unspecified; D72.829 Elevated white blood cell count, unspecified; E87.6 Hypokalemia; D35.01 Benign neoplasm of right adrenal gland; E53.8 Deficiency of other specified B group vitamins; K29.71 Gastritis, unspecified, with bleeding
CPT/HCPCS: 36415; 43239; 74176; 80048; 80053; 81001; 81025; 82306; 82607; 83036; 83690; 83735; 84443; 85025; 85610; 85730; 86850; 86900; 86901; 96365; 96375; 99291; G0378; J2250; J2405; J2470; J2543; J3490